=== PATIENT | male | born 1960 | race Caucasian/White ===

== ENCOUNTER 2017-01-08 13:37 | Emergency (ER) | payer MEDICAID ==
[~2017-01-08] VITALS: Ht 175.3 cm; Wt 72.7 kg
[~2017-01-08 13:37] MED LIST: FLEXERIL 1010 MG/TAB PO; NO HOME MEDICATIONS; NORCO 325 MG-51 TAB PO; PERCOCET 325 MG1 TAB PO
[2017-01-08 13:42] VITALS: TEMP 97.8
[2017-01-08 14:45] LABS: BASO % 0.5 % (0.0-2.0); EOS # 0.4 (0.0-0.7); EOS % 4.7 % (0-4.0); GRAN # 5.9 (1.4-6.5); GRAN % 67.5 % (42.2-75.2); HEMOGLOBIN 13.3 g/dl (13.5-18.0); LYMPH # 1.4 (1.2-3.4); LYMPH % 16.6 % (20.0-51.0); MEAN CELL VOLUME 87 fl (80.0-100.0); MEAN CORPUSCULAR HEMOGLOBIN 29 pg (27.0-31.0); MEAN CORPUSCULAR HGB CONC 33 g/dl (33.0-37.0); MEAN PLATELET VOLUME 9.4 fl (7.4-10.4); MONO # 0.9 (0.1-0.6); MONO % 10.4 % (1.7-9.3); PLATELET COUNT 192 K/mm3 (130-400); REDCELL DISTRIBUTION WIDTH-CV 13.3 % (11.5-14.5); WHITE BLOOD COUNT 8.7 K/mm3 (4.8-10.8)
[2017-01-08 14:59] LABS: ADJUSTED CALCIUM 9.1 mg/dL (8.4-10.2); ALBUMIN 3.4 gm/dL (3.5-5.0); BILIRUBIN,TOTAL 0.5 mg/dL (0.0-1.0); CALCIUM 8.6 mg/dL (8.4-10.2); CREATININE, serum 0.83 mg/dL (0.66-1.25); POTASSIUM 3.9 mmol/L (3.4-5.0); TOTAL PROTEIN 6.2 gm/dL (6.4-8.2)
[2017-01-08 15:09] LABS: ERYTHROCYTE SEDIMENTATION RATE 15 mm/hr (0-30)
[2017-01-08 15:20] LABS: C-REACTIVE PROTEIN 15.6 mg/dL (0.0-0.9)
[2017-01-08] MEDS ORDERED: PERCOCET 325 MG1 TA3 PO (15:49)
[2017-01-08 16:15] VITALS: BP 122/79; PULSE 82
== END 2017-01-08 16:18 | disposition home or self-care (01) ==
LOC: COL.ER 13:37
PROVIDERS: Emergency Medicine
DX: M25.461 Effusion, right knee (principal); I48.91 Unspecified atrial fibrillation; I50.9 Heart failure, unspecified
CPT/HCPCS: J2270; J2405

== ENCOUNTER 2017-07-05 23:10 | Emergency (ER) | payer MEDICAID ==
[~2017-07-05] VITALS: Ht 175.3 cm; Wt 72.7 kg
[~2017-07-05 23:10] MED LIST changes: +PERCOCET 325 MG1 TA3 PO
[2017-07-05 23:13] VITALS: TEMP 100.5
[2017-07-05 23:46] LABS: COLLECTION METHOD CLEAN CATCH
[2017-07-05 23:51] LABS: BASO % 0.3 % (0.0-2.0); EOS % 0.3 % (0-4.0); GRAN # 7.5 (1.4-6.5); GRAN % 85.2 % (42.2-75.2); HEMOGLOBIN 13.5 g/dl (13.5-18.0); LYMPH # 0.5 (1.2-3.4); LYMPH % 6.1 % (20.0-51.0); MEAN CELL VOLUME 85 fl (80.0-100.0); MEAN CORPUSCULAR HEMOGLOBIN 29 pg (27.0-31.0); MEAN CORPUSCULAR HGB CONC 34 g/dl (33.0-37.0); MEAN PLATELET VOLUME 9.8 fl (7.4-10.4); MONO # 0.7 (0.1-0.6); MONO % 7.4 % (1.7-9.3); PLATELET COUNT 185 K/mm3 (130-400); REDCELL DISTRIBUTION WIDTH-CV 13.2 % (11.5-14.5)
[2017-07-05 23:58] LABS: PH 5 (5-8); SQUAMOUS EPITHELIAL None Seen /hpf; URINE APPEARANCE Cloudy; URINE BACTERIA None Seen /hpf; URINE BILIRUBIN Negative (NEGATIVE); URINE BLOOD 3+ (NEGATIVE); URINE COLOR Amber; URINE GLUCOSE Negative (NEGATIVE); URINE KETONE Negative (NEGATIVE); URINE LEUKOCYTE ESTERASE 3+ (NEGATIVE); URINE NITRATE Negative (NEGATIVE); URINE PROTEIN(semi-quant) 2+ (NEGATIVE); URINE RBC >50 /hpf
[2017-07-06 00:07] LABS: ALBUMIN 3.3 gm/dL (3.5-5.0); BILIRUBIN,TOTAL 0.3 mg/dL (0.0-1.0); CALCIUM 8.2 mg/dL (8.4-10.2); CREATININE, serum 0.8 mg/dL (0.66-1.25); TOTAL PROTEIN 6.5 gm/dL (6.4-8.2)
[2017-07-06 00:18] LABS: C-REACTIVE PROTEIN 26.9 mg/dL (0.0-0.9)
[2017-07-06] MEDS ORDERED: OMNICEF 300MG300 MG PO ×2 (02:02)
[2017-07-06] MEDS ORDERED: TOPROL XL 25MG25 MG PO (02:18)
[2017-07-06] MEDS ORDERED: COZAAR 25MG25 MG/TAB PO (02:19)
[2017-07-06] MEDS ORDERED: LASIX 20MG TABL20 MG PO (02:19)
[2017-07-06] MEDS ORDERED: CEFTIN500 MG PO (02:46)
[2017-07-06 02:58] VITALS: BP 110/64; PULSE 79
== END 2017-07-06 02:59 | disposition home or self-care (01) ==
LOC: COL.ER 23:10
PROVIDERS: Emergency Medicine
DX: N12 Tubulo-interstitial nephritis, not specified as acute or chronic (principal)
CPT/HCPCS: J0696; J7030

== ENCOUNTER 2019-06-15 17:04 | Emergency (ER) | payer SELFPAY ==
[~2019-06-15 17:04] MED LIST changes: +CEFTIN500 MG PO; +COZAAR 25MG25 MG/TAB PO; +LASIX 20MG TABL20 MG PO; +OMNICEF 300MG300 MG PO; +TOPROL XL 25MG25 MG PO
[2019-06-15 17:16] VITALS: TEMP 98
[2019-06-15] MEDS ORDERED: NORVASC2.5 MG PO (17:48)
[2019-06-15] MEDS ORDERED: TOPROL XL 25MG25 MG PO (17:48)
[2019-06-15 18:15] VITALS: BP 154/79; PULSE 81
== END 2019-06-15 18:15 | disposition home or self-care (01) ==
LOC: COL.ER 17:04
DX: I10 Essential (primary) hypertension (principal)

== ENCOUNTER 2019-11-03 18:31 | Emergency (ER) | payer SELFPAY ==
[~2019-11-03] VITALS: Ht 175.3 cm; Wt 73.6 kg
[~2019-11-03 18:31] MED LIST changes: +NORVASC2.5 MG PO
[2019-11-03 18:37] VITALS: TEMP 97.8
[2019-11-03 19:22] LABS: BASO # 0.1 (0.0-0.2); BASO % 0.6 % (0.0-2.0); EOS # 0.4 (0.0-0.7); EOS % 4.4 % (0-4.0); GRAN # 5.3 (1.4-6.5); GRAN % 66.7 % (42.2-75.2); HEMATOCRIT 43.5 % (42.0-52.0); HEMOGLOBIN 14.6 g/dl (13.5-18.0); LYMPH # 1.8 (1.2-3.4); MEAN CELL VOLUME 86 fl (80.0-100.0); MEAN CORPUSCULAR HEMOGLOBIN 29 pg (27.0-31.0); MEAN CORPUSCULAR HGB CONC 34 g/dl (33.0-37.0); MEAN PLATELET VOLUME 9.4 fl (7.4-10.4); MONO # 0.5 (0.1-0.6); MONO % 5.9 % (1.7-9.3); PLATELET COUNT 228 K/mm3 (130-400); RED BLOOD COUNT 5.08 M/mm3 (4.20-5.60); REDCELL DISTRIBUTION WIDTH-CV 13.2 % (11.5-14.5)
[2019-11-03 19:44] LABS: CALCIUM 9.2 mg/dL (8.4-10.2); CREATININE, serum 0.88 (0.66-1.25); POTASSIUM 3.9 mmol/L (3.4-5.0)
[2019-11-03 22:33] VITALS: BP 114/76; PULSE 77
== END 2019-11-03 20:41 | disposition home or self-care (01) ==
LOC: COL.ER 18:31
PROVIDERS: Family Medicine
DX: T18.128A Food in esophagus causing other injury, initial encounter (principal)
CPT/HCPCS: J2704; J3010; J7030

== ENCOUNTER 2020-10-12 13:14 | Emergency (ER) | payer SELFPAY ==
[~2020-10-12] VITALS: Ht 175.3 cm; Wt 73.6 kg
[2020-10-12 13:21] VITALS: TEMP 97.4
--- NOTE | 2020-10-12 14:26 | NUR ---
Leasing Property Manager responded to consult in the ED for self pay patient. SW met with patient who advised he lives with his partner, Bella Edward (ph#[phone]) who is at bedside. 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 Patient obtains medications from [facility] and utilizes the [facility]itza. Patient uses a cane and no other DME. Patient reports independence with ADLS. MARLENA discussed making an appointment at [facility] as patient is self pay, however patient prefers the [facility]. MARLENA contacted Poli at [facility] and gave referral. Poli advised she will contact patient to set up appointment. MARLENA also consulted Ursula, Financial Counselor. MARLENA collaborated the above information to ED Physician.
[2020-10-12] MEDS ORDERED: ULTRAM 50MG TAB50 MG PO (15:24)
[2020-10-12 15:33] VITALS: BP 136/84; PULSE 73
== END 2020-10-12 15:33 | disposition home or self-care (01) ==
LOC: COL.ER 13:14
DX: M16.0 Bilateral primary osteoarthritis of hip (principal); Z87.891 Personal history of nicotine dependence

== ENCOUNTER → 2020-12-01 | Outpatient (CLI) | payer OTHER ==
[~2020-12-01] MED LIST changes: +FERRO-TIME325 MG PO; +FOLIC ACID 40400 MCG PO; +TOPROL XL 50MG50 MG PO; +ULTRAM 50MG TAB50 MG PO; +VITAMIN C500 MG PO
== END ==
LOC: COL.RAD 09:42
DX: M25.551 Pain in right hip (principal)
CPT/HCPCS: J3301; Q9967

== ENCOUNTER → 2021-02-02 | Outpatient (CLI) | payer OTHER | LOC: COL.CARD 07:01 | DX: I48.92 Unspecified atrial flutter (principal) ==

== ENCOUNTER 2021-02-10 09:58 | Outpatient (RCR) | payer OTHER ==
[~2021-02-10 09:58] MED LIST changes: -FERRO-TIME325 MG PO; -FOLIC ACID 40400 MCG PO; -TOPROL XL 50MG50 MG PO; -VITAMIN C500 MG PO
[2021-03-03] MEDS ORDERED: TOPROL XL 50MG50 MG PO (06:25)
[2021-03-03] MEDS ORDERED: FERRO-TIME325 MG PO (06:34)
[2021-03-03] MEDS ORDERED: VITAMIN C500 MG PO (06:35)
[2021-03-03] MEDS ORDERED: FOLIC ACID 40400 MCG PO (06:35)
== END 2021-03-15 13:46 ==
LOC: PT.GENESIS 09:58
DX: M25.551 Pain in right hip (principal)

== ENCOUNTER → 2021-02-10 | Outpatient (CLI) | payer OTHER | LOC: COL.RAD 14:26 | DX: Z01.818 Encounter for other preprocedural examination (principal); Z96.641 Presence of right artificial hip joint ==

== ENCOUNTER → 2021-02-18 | Outpatient (CLI) | payer OTHER ==
[~2021-02-18] MED LIST changes: +FERRO-TIME325 MG PO; +FOLIC ACID 40400 MCG PO; +TOPROL XL 50MG50 MG PO; +VITAMIN C500 MG PO
[2021-02-18 11:00] LABS: COLLECTION METHOD CLEAN CATCH
[2021-02-18 11:04] LABS: BASO # 0.1 (0.0-0.2); BASO % 1.5 % (0.0-2.0); EOS # 0.4 (0.0-0.7); EOS % 5.7 % (0-4.0); GRAN # 4.8 (1.4-6.5); GRAN % 61.6 % (42.2-75.2); HEMATOCRIT 42.6 % (42.0-52.0); HEMOGLOBIN 14.2 g/dl (13.5-18.0); LYMPH # 1.8 (1.2-3.4); LYMPH % 23.4 % (20.0-51.0); MEAN CELL VOLUME 87 fl (80.0-100.0); MEAN CORPUSCULAR HEMOGLOBIN 29 pg (27.0-31.0); MEAN CORPUSCULAR HGB CONC 33 g/dl (33.0-37.0); MEAN PLATELET VOLUME 9.2 fl (7.4-10.4); MONO # 0.6 (0.1-0.6); MONO % 7.2 % (1.7-9.3); PLATELET COUNT 273 K/mm3 (130-400); RED BLOOD COUNT 4.88 M/mm3 (4.20-5.60); REDCELL DISTRIBUTION WIDTH-CV 14.6 % (11.5-14.5)
[2021-02-18 11:13] LABS: MUCOUS Present /lpf; PH 5 (5-8); SQUAMOUS EPITHELIAL 0-2 /hpf; URINE APPEARANCE Clear; URINE BACTERIA None Seen /hpf; URINE BILIRUBIN Negative (NEGATIVE); URINE BLOOD Negative (NEGATIVE); URINE COLOR Yellow; URINE GLUCOSE Negative (NEGATIVE); URINE KETONE Negative (NEGATIVE); URINE LEUKOCYTE ESTERASE Negative (NEGATIVE); URINE NITRATE Negative (NEGATIVE); URINE PROTEIN(semi-quant) Negative (NEGATIVE); URINE RBC 0-2 /hpf; URINE UROBILINOGEN Negative (NEGATIVE)
[2021-02-18 11:19] LABS: ALBUMIN 3.9 gm/dL (3.4-4.8); BILIRUBIN,TOTAL 0.4 mg/dL (0.2-1.2); CALCIUM 9.4 mg/dL (8.4-10.2); CREATININE, serum 0.92 mg/dL (0.72-1.25); TOTAL PROTEIN 7.4 gm/dL (6.2-8.1)
[2021-02-18 11:26] LABS: POTASSIUM 4.2 mmol/L (3.5-4.5)
[2021-02-18 11:43] LABS: PROTHROMBIN TIME 11.2 SECONDS (9.7-12.8)
== END ==
LOC: COL.LAB 10:11
PROVIDERS: Orthopaedic Surgery Sports Medicine
DX: Z01.812 Encounter for preprocedural laboratory examination (principal)

== ENCOUNTER 2021-03-03 05:26 | Day surgery (SDC) | payer OTHER ==
[~2021-03-03] VITALS: Ht 175.4 cm; Wt 74.1 kg
[2021-03-03] VITALS (12 sets, daily range): BP systolic 115–143; BP diastolic 51–90; PULSE 51–95; TEMP 97.5–98.4
[~2021-03-03 05:26] MED LIST changes: -FERRO-TIME325 MG PO; -FOLIC ACID 40400 MCG PO; -TOPROL XL 50MG50 MG PO; -VITAMIN C500 MG PO
[2021-03-03] MEDS ORDERED: TOPROL XL 50MG50 MG PO (06:25)
[2021-03-03] MEDS ORDERED: FERRO-TIME325 MG PO (06:34)
[2021-03-03] MEDS ORDERED: VITAMIN C500 MG PO (06:35)
[2021-03-03] MEDS ORDERED: FOLIC ACID 40400 MCG PO (06:35)
--- NOTE | 2021-03-03 09:50 | NUR ---
arrived in room per bed from PACU, awake and alert but sleepy, IV infusing and placed on pump at 100ml/hr, O2 on at 2L/NC and O2 sat 100%, aquacel dressing to left hip CD&I and ice in place, SAM hose and SCDS on bilaterally, has sensation down to knees bilaterally but unable to move lower extremities, c/o left shoulder pain that has before admission,
--- NOTE | 2021-03-03 10:00 | NUR ---
provided ice water per his request and takes and tolerates well
--- NOTE | 2021-03-03 11:30 | NUR ---
sitting up in bed eawting pudding, instructed on ordering regular food when he is ready, states pain in left shoulder is better, has sensation down to toes but only has gross motor movement, denies needs
--- NOTE | 2021-03-03 12:30 | NUR ---
awake and asking to sit up on side of bed and is ready to order food, O2 sat remains at 100% on O2, O2 off and will monitor
--- NOTE | 2021-03-03 13:09 | NUR ---
has full sensation and is asking to sit on side of bed, assisted up and has been incontinent of urine, he verbalizes he thought this had happened, stood and took a few steps and linens changed, then back to bed, lunch has been ordered,
--- NOTE | 2021-03-03 13:36 | NUR ---
c/ pain 11/04 and requesting something for this, medicated with scheduled toradol 15mg slow IV and will monitor
--- NOTE | 2021-03-03 13:58 | NUR ---
had lunch and tolerates well, states relief from pain after toradol, O2 on room air 98%
--- NOTE | 2021-03-03 14:30 | NUR ---
assisted up to bathroom to try and have bowel movement, IV fluids stopped and to INT
--- NOTE | 2021-03-03 17:37 | NUR ---
resting in bed playing a game on his tablet
--- NOTE | 2021-03-03 18:45 | NUR ---
appears to be dozing, awakens easily and bedside shift report given to AYO Lerma
--- NOTE | 2021-03-03 20:52 | NUR ---
PT ASSISTED TO BR WITH SBA, GAITBELT ET WALKER. PT TOLERATES VERY WELL, GAIT IS STEADY. PT HAS SMALL, HARD, DARK BM. PT IS THEN ASSISTED TO WALK IN HALLWAY TO NURSE'S DESK ET BACK TO HIS ROOM, ALSO TOLERATES VERY WELL. STATES THAT IV TORADOL HELPS WITH PAIN. PT ASSISTED BACK INTO BED. SCDS APPLIED BILATERAL LEGS ET FRESH ICE PACK APPLIED TO RIGHT HIP. PT DENIES OTHER NEEDS, CALL LIGHT WITHIN REACH.
[2021-03-04 03:40] VITALS: BP 119/58; PULSE 63; TEMP 98.7
[2021-03-04 06:36] LABS: HEMOGLOBIN 12.1 g/dl (13.5-18.0)
[2021-03-04 06:50] LABS: HEMATOCRIT 35.9 % (42.0-52.0)
[2021-03-04 07:10] VITALS: BP 108/52; PULSE 58; TEMP 97.3
--- NOTE | 2021-03-04 09:13 | NUR ---
MARLENA met with the patient to discuss discharge plan. The patient lives in [place] with his girlfriend, Bella (ph#[phone]). He reports independence with ADLs and has a cane, walker, and crutches. The patient receives primary care at [facility] and his medications from [facility]. He reports no difficulties obtaining his meds. The patient confirms that he is self pay. He reports that he already completed and FAA and turned it back in to the hospital. The patient does not have a DPOA-HC, but he was interested in obtaining a form. MARLENA provided. The patient plans to return home with his girlfriend and receive outpatient PT at [facility] located in [facility] upon discharge. No additional needs at this time. *Discharge plan: home with outpatient PT*
--- NOTE | 2021-03-04 09:30 | NUR ---
Pt doing well this morning. He is planning on going home today. DRSG is CDI to the right hip. Pain is tolerable at this time. Discussed taking something before therapy. Ice to right hip, pt sitting up in the chair. No needs verbalized, will continue to monitor
[2021-03-04 12:40] VITALS: BP 104/59; PULSE 56; TEMP 97.7
--- NOTE | 2021-03-04 13:06 | NUR ---
Pt currently eating lunch in recliner. Pt's in room at this time. Pt has INT to left hand with no warmth or redness noted. Pt has SAM hose to bilateral extremities. Call light within reach.
--- NOTE | 2021-03-04 13:30 | NUR ---
Reviewed discharge instructions with pt and his . Discussed therapy, medication and follow up appointment. Pt will have one more therapy session prior to leaving. No needs verbalized, informed pt to notify nursing when he was ready for discharge
--- NOTE | 2021-03-04 13:48 | NUR ---
INT removed from left hand. No redness or warmth noted. Pt tolerated well.
--- NOTE | 2021-03-04 13:50 | NUR ---
INT removed by [facility] student Tiffany
--- NOTE | 2021-03-04 15:32 | NUR ---
Pt escorted out at this time
== END 2021-03-04 15:35 | disposition home or self-care (01) ==
LOC: SURG 05:26 → INPTSU 05:26 → SDCO 05:26 → SURG 07:30 → EDSTATUS 07:30 → INPTSU 10:00 → SURG 10:00 → SDCO 03-04 15:35
PROVIDERS: Orthopaedic Surgery Sports Medicine
DX: M16.11 Unilateral primary osteoarthritis, right hip (principal); M10.9 Gout, unspecified; I11.0 Hypertensive heart disease with heart failure; I50.9 Heart failure, unspecified; G47.33 Obstructive sleep apnea (adult) (pediatric); M51.26 Other intervertebral disc displacement, lumbar region; R26.89 Other abnormalities of gait and mobility; Z99.89 Dependence on other enabling machines and devices; Z87.891 Personal history of nicotine dependence; Z79.899 Other long term (current) drug therapy; Z80.0 Family history of malignant neoplasm of digestive organs
CPT/HCPCS: OP; A9284; C1776; J0690; J1885; J2250; J2370; J2704; J7120

== ENCOUNTER 2021-05-18 10:00 | Outpatient (RCR) | payer OTHER ==
[~2021-05-18 10:00] MED LIST changes: +FERRO-TIME325 MG PO; +FOLIC ACID 40400 MCG PO; +TOPROL XL 50MG50 MG PO; +VITAMIN C500 MG PO
== END 2021-05-27 | disposition home or self-care (01) ==
LOC: PT.GENESIS
DX: Z96.641 Presence of right artificial hip joint (principal)

== ENCOUNTER 2021-10-23 16:01 | Emergency (ER) | payer SELFPAY ==
[~2021-10-23] VITALS: Ht 175.3 cm; Wt 75.5 kg
[2021-10-23 16:12] VITALS: TEMP 99.2
[2021-10-23 17:25] LABS: BASO % 0.3 % (0.0-2.0); EOS # 0.3 K/mm3 (0.0-0.7); EOS % 4.6 % (0.0-4.0); GRAN # 4.3 K/mm3 (1.4-6.5); HEMATOCRIT 39.2 % (42.0-52.0); HEMOGLOBIN 13.2 g/dl (13.5-18.0); LYMPH # 0.9 K/mm3 (1.2-3.4); LYMPH % 14.8 % (20.0-51.0); MEAN CELL VOLUME 85 fl (80.0-100.0); MEAN CORPUSCULAR HEMOGLOBIN 29 pg (27-31); MEAN CORPUSCULAR HGB CONC 34 g/dl (33.0-37.0); MEAN PLATELET VOLUME 9.3 fl (7.4-10.4); MONO # 0.6 K/mm3 (0.1-0.6); PLATELET COUNT 194 K/mm3 (130-400); RED BLOOD COUNT 4.59 M/mm3 (4.20-5.60); REDCELL DISTRIBUTION WIDTH-CV 13.9 % (11.5-14.5)
[2021-10-23 17:43] LABS: ALBUMIN 3.4 gm/dL (3.4-4.8); BILIRUBIN,TOTAL 0.8 mg/dL (0.2-1.2); CALCIUM 8.6 mg/dL (8.4-10.2); CREATININE, serum 0.83 mg/dL (0.72-1.25); POTASSIUM 3.6 mmol/L (3.5-4.5); TOTAL PROTEIN 6.8 gm/dL (6.2-8.1)
[2021-10-23] MEDS ORDERED: AMOXICILLIN 8751 TAB PO (17:48)
[2021-10-23 20:12] VITALS: BP 131/83; PULSE 66
== END 2021-10-23 20:12 | disposition home or self-care (01) ==
LOC: COL.ER 16:01
PROVIDERS: Personal Emergency Response Attendant
DX: J18.9 Pneumonia, unspecified organism (principal); Z20.822 Contact with and (suspected) exposure to COVID-19; Z28.310 Unvaccinated for COVID-19
CPT/HCPCS: J0696; J7030

== ENCOUNTER → 2021-11-24 | Outpatient (CLI) | payer SELFPAY ==
[~2021-11-24] MED LIST changes: +AMOXICILLIN 8751 TAB PO
== END ==
LOC: COL.RAD 10:19
DX: N43.3 Hydrocele, unspecified (principal); N44.8 Other noninflammatory disorders of the testis

== ENCOUNTER 2021-12-19 10:26 | Day surgery (SDC) | payer SELFPAY ==
[~2021-12-19] VITALS: Ht 175.3 cm; Wt 75.4 kg
[2021-12-19 10:54] VITALS: BP 134/80; PULSE 55; TEMP 98.2
[2021-12-19 11:16] LABS: BASO # 0.1 K/mm3 (0.0-0.2); BASO % 0.9 % (0.0-2.0); EOS # 0.3 K/mm3 (0.0-0.7); EOS % 4.6 % (0.0-4.0); GRAN # 4.6 K/mm3 (1.4-6.5); GRAN % 61.3 % (42.2-75.2); HEMATOCRIT 42.7 % (42.0-52.0); HEMOGLOBIN 14.4 g/dl (13.5-18.0); LYMPH # 1.9 K/mm3 (1.2-3.4); LYMPH % 25.8 % (20.0-51.0); MEAN CELL VOLUME 85 fl (80.0-100.0); MEAN CORPUSCULAR HEMOGLOBIN 29 pg (27-31); MEAN CORPUSCULAR HGB CONC 34 g/dl (33.0-37.0); MONO # 0.5 K/mm3 (0.1-0.6); MONO % 7.1 % (1.7-9.3); PLATELET COUNT 252 K/mm3 (130-400); REDCELL DISTRIBUTION WIDTH-CV 13.8 % (11.5-14.5)
[2021-12-19 11:36] LABS: ALBUMIN 3.2 gm/dL (3.4-4.8); BILIRUBIN,TOTAL 0.3 mg/dL (0.2-1.2); CALCIUM 8.5 mg/dL (8.4-10.2); CREATININE, serum 0.88 mg/dL (0.72-1.25); POTASSIUM 5.7 mmol/L (3.5-4.5); TOTAL PROTEIN 6.5 gm/dL (6.2-8.1)
--- NOTE | 2021-12-19 13:12 | NUR ---
1230: Reviewed patient's labs. QUE Renae notified and Dr. Jaramillo notified of potassium level. 1300: MD in to see patient. Surgery cancelled. 1310: IV removed without complications.
== END 2021-12-19 13:35 | disposition home or self-care (01) ==
LOC: SDCO 10:26
PROVIDERS: Surgery
DX: K40.90 Unilateral inguinal hernia, without obstruction or gangrene, not specified as recurrent (principal); K40.91 Unilateral inguinal hernia, without obstruction or gangrene, recurrent; Z53.8 Procedure and treatment not carried out for other reasons
CPT/HCPCS: J0690; J1100; J2405; J2704; J3010; J7120

== ENCOUNTER 2022-01-02 11:25 | Day surgery (SDC) | payer SELFPAY ==
[~2022-01-02] VITALS: Ht 175.3 cm; Wt 77.7 kg
[2022-01-02] MEDS ORDERED: SUPER BETA PO (11:55)
[2022-01-02 12:03] VITALS: BP 150/70; PULSE 49; TEMP 98.1
[2022-01-02] MEDS ORDERED: NORCO 325 MG-51 TAB PO (15:57)
[2022-01-02 17:05] VITALS: BP 129/79; PULSE 86; TEMP 97.6
[2022-01-02 17:20] VITALS: BP 130/61; PULSE 44
[2022-01-02 17:35] VITALS: BP 134/74; PULSE 46
[2022-01-02 17:50] VITALS: BP 139/71; PULSE 70
--- NOTE | 2022-01-02 18:17 | NUR ---
1815 - DC instructions and educational material reviewed with the PT who verbalized understanding and signed the realted paperwork. Questions answered to PT satisfaction. PT then dismissed from [facility] via wheelchair to the ER entrence by Yvette ROLLINS, and was transferred into the care of Bella who is driving private car. PT has his cane.
--- NOTE | 2022-01-02 18:23 | NUR ---
1705- PT returns to room per cart and PACU nurse. VSS. Monitor on. O2 on per NC/2L. Sats at 100%. LR infusing in R hand. IV site without s/s infiltration. Dressing dry and intact to lower abdomen/groin. Drowsy but answers questions apporiately. Rates pain 09/04. Spouse brought back to room 2. 1720- O2 off. Sats continue at 100%. Grape juice and crackers given. HOB elevated increased to sitting position. 1725- Assist pt. to bathroom. Voided and then assist back to cart. 1755- IV discontinued from R hand with cath intact. Pressure dressing applied to site. Pt up to edge of cart and changes into personal clothes.
[2022-01-02 19:34] VITALS: BP 135/90; PULSE 89; TEMP 97.5
== END 2022-01-02 18:15 | disposition home or self-care (01) ==
LOC: SDCO 11:25
DX: K40.91 Unilateral inguinal hernia, without obstruction or gangrene, recurrent (principal); K40.90 Unilateral inguinal hernia, without obstruction or gangrene, not specified as recurrent
CPT/HCPCS: C1781; J0690; J1100; J2405; J2704; J3010; J7120

== ENCOUNTER → 2023-06-28 | Outpatient (CLI) | payer MEDICARE ==
[~2023-06-28] MED LIST changes: +COLCRYS0.6 MG PO; +SUPER BETA PO
== END ==
LOC: COL.RAD 12:45
DX: N43.3 Hydrocele, unspecified (principal); N50.89 Other specified disorders of the male genital organs

== ENCOUNTER 2024-02-13 15:15 | Outpatient (RCR) | payer MEDICARE | END 2024-02-25 | disposition home or self-care (01) | LOC: PT.GENESIS | DX: M16.12 Unilateral primary osteoarthritis, left hip (principal); Z96.642 Presence of left artificial hip joint ==